=== PATIENT | female | born 1980 | race Caucasian/White ===

== ENCOUNTER 2024-02-17 09:48 | Emergency (ER) | payer BC, SELFPAY ==
[2024-02-17 09:54] VITALS: BP 118/75; PULSE 80; RESP 18; TEMP 37.4; O2SAT 100; BMI 23.3
--- NOTE | 2024-02-17 10:07 | CRLHL7_ITS ---
For Patients: As a result of the Century Cures Act, medical imaging exams and procedure reports are released immediately into your electronic medical record. You may view this report before your referring provider. If you have questions, please contact your health care provider. INDICATION: Vaginal bleeding. . Findings: An endovaginal pelvic ultrasound shows a uterus of normal size, contour, and echogenicity. Thickened endometrial stripe measuring up to 3.5 cm in thickness with no fluid collection in the endometrial canal. 1.4 cm possible corpus luteum cyst in the left ovary. The ovaries are otherwise unremarkable with the left ovary measuring 3.3 x 2.2 x 1.7 cm in the right ovary measuring 3.3 x 2.2 x 1.1 cm. Impression : 1. No intra or extra uterine identified. An ectopic can not be excluded based on this study. Recommend continued close interval sonographic and laboratory follow-up. Dictated by Dell Kirby MD @ 02/17/2024 12:09:56 PM (Electronically Signed)
--- NOTE | 2024-02-17 10:19 | ED.GENADULT ---
HPI - General Adult General Chief complaint: Vaginal Bleeding Stated complaint: possible miscarriage Time Seen by Provider: 02/17/24 09:58 Source: patient Mode of arrival: ambulatory Limitations: no limitations History of Present Illness HPI narrative: [age] year old female coming in today with vaginal bleeding. Patient states that she is a at unknown age of gestation. She states that she had her LMP on November 27 and that at the beginning of January she had an ultrasound done with her OBGYN who told her that the was not viable. She has been spotting on and off for about a week and then this morning approximately 2-1/2 hours ago she started ?gushing blood?. She is tearful, feels lightheaded. She does state that the bleeding has slowed down some. Related Data Home Medications ?Medication ?Instructions ?Recorded ?Confirmed No Known Home Medications 02/17/24 02/17/24 Allergies Allergy/AdvReac Type Severity Reaction Status Date / Time Penicillins Allergy Verified 02/17/24 09:54 Review of Systems Status of ROS: Reports: 10 or more systems reviewed and unremarkable except as noted in History and below PFSH PFS Social History Smoking Status: Never smoker Do you use any of these nicotine containing products: None Second hand tobacco smoke exposure: No How often do you have a drink containing alcohol: monthly or less How many standard drinks containing alcohol do you have on a typical day: 1 or 2 How often do you have six or more drinks on one occasion: Never AUDIT-C Alcohol total score: 1 Non-prescribed substance use: denies use service: No Exam Narrative: Exam Narrative: Well-nourished well-developed patient, tearful. Alert and oriented. Answers questions appropriately. Thoughts are goal oriented and rational. No tangential or magical thinking noted. Patient speaks in full sentences without needing to catch her breath. Does not appear pale or ill. HEENT: Normocephalic atraumatic. Pupils are equally round reactive to light. Extraocular muscles are intact. Conjunctivae are moist without any icterus noted. Moist mucous membranes. Posterior pharynx is normal. Neck is soft without any lymphadenopathy or thyromegaly. No masses are appreciated. Cardiovascular: Heart is regular rate and rhythm S1 and S2 are present without any murmurs. Lungs: Clear to auscultation bilaterally no wheezes rhonchi or rales are appreciated. Patient takes deep breaths without any discomfort. Abdomen: Soft and nontender nondistended with normal bowel sounds. Extremities: Bilateral lower extremities are without edema. Skin: Well perfused without any obvious rashes. Const: Vital Signs, click to edit/add: Vital Signs - 24 hr 02/17/24 09:54 02/17/24 10:31 02/17/24 11:49 Temperature 99.3 F 99.3 F Pulse Rate 82 Pulse Rate [Pulse Oximeter] 80 80 Respiratory Rate 18 14 18 Blood Pressure 109/67 Blood Pressure [Le ft Upper Arm] 118/75 118/75 Pulse Oximetry 100 97 Oxygen Delivery Me thod Room Air Course Course ED Course: IV is established influenza started. CBC and ABO Rh blood type is drawn. These are unremarkable, her blood type O positive. Ultrasound is ordered - this shows some retained products in the uterus and vascular endometrium. Did discuss these results with Dr. Koo - who recommended either waiting a few more days as long as the bleeding is not significant or doing a D&C. I discussed this with the patient would like to go home at this time he does not feel the need for D&C. Missed patient states that her bleeding has slowed down. She describes it as regular menses at this time. Vital Signs Vital signs: Initial Vital Signs Temperature 99.3 F 02/17/24 09:54 Temperature Source Temporal Artery Scan 02/17/24 09:54 Pulse Rate 80 02/17/24 09:54 Pulse Rhythm Regular 02/17/24 09:54 Respiratory Rate 18 02/17/24 09:54 Blood Pressure 118/75 02/17/24 09:54 Blood Pressure Mean 89 02/17/24 09:54 Blood Pressure Position Supine 02/17/24 09:54 Pulse Oximetry 100 02/17/24 09:54 Oxygen Delivery Method Room Air 02/17/24 09:54 Vital Signs Temperature 99.3 F 02/17/24 09:54 Pulse Rate 80 02/17/24 09:54 Respiratory Rate 18 02/17/24 09:54 Blood Pressure 118/75 02/17/24 09:54 Pulse Oximetry 100 02/17/24 09:54 Oxygen Delivery Method Room Air 02/17/24 09:54 Temperature 99.3 F 02/17/24 11:49 Pulse Rate 80 02/17/24 11:49 Respiratory Rate 18 02/17/24 11:49 Blood Pressure 118/75 02/17/24 11:49 Pulse Oximetry 97 02/17/24 10:31 Oxygen Delivery Method Room Air 02/17/24 09:54 Medications Administered Medications: Discontinued Medications Generic Name Dose Route Start Last Admin Trade Name Freq PRN Reason Stop Dose Admin Sodium Chloride 1,000 mls @ 1,000 mls/hr 02/17/24 10:15 02/17/24 11:25 0.9 % Sodium Chloride 1000 Ml IV 02/17/24 11:14 Infused .Q1H STEPHANIE Infusion Medical Decision Making MDM Narrative Medical decision making narrative: Spontaneous . Patient will be discharged home at this time. We discussed returning if she has increased bleeding where she is soaking more than 1 pad per hour, she becomes very lightheaded. Otherwise she will follow-up with her OBGYN early next week. Lab Data Lab results reviewed: Yes I reviewed the patient's lab results Labs: Lab Results 02/17/24 Range/Units 10:16 WBC 9.24 (4.50-11.00) K/uL RBC 3.93 L (4.00-5.20) m/uL Hgb 12.2 (12.0-16.0) gm/dL Hct 36.2 (33.0-51.0) % MCV 92 (80-100) fL MCH 31 (26-34) pg MCHC 34 (32-36) gm/dL RDW Coeff of Kasandra 12.2 (11.5-15.5) % Plt Count 205 (140-440) K/uL Neut % (Auto) 73.2 H (42.0-72.0) % Lymph % (Auto) 19.8 L (20-44) % [place] % (Auto) 5.6 (0.0-11.0) % Eos % (Auto) 0.8 (0.0-7.0) % Baso % (Auto) 0.5 (0.0-3.0) % Neut # (Auto) 6.80 (1.7-7.0) K/uL Lymph # (Auto) 1.80 (0.90-2.90) K/uL [place] # (Auto) 0.50 (0.00-0.90) K/UL Eos # (Auto) 0.07 (0.00-0.50) K/uL Baso # (Auto) 0.05 (0.00-0.30) K/uL Abs Immat Gran (auto) 0.01 (0.00-0.30) K/uL Imm/Tot Granulo (auto) 0.1 % Blood Type O Positive Imaging Data US - abdomen: Attestation: I have reviewed the pertinent imaging results. Radiologist's impression: Procedure(s): US OB transvaginal Accession Number(s): [id number] cc: Tracy Ruvalcaba M.D.; Provider,Not a Local~ For Patients: As a result of the Cures Act, medical imaging exams and procedure reports are released immediately into your electronic medical record. You may view this report before your referring provider. If you have questions, please contact your health care provider. INDICATION: Vaginal bleeding. . Findings: An endovaginal pelvic ultrasound shows a uterus of normal size, contour, and echogenicity. Thickened endometrial stripe measuring up to 3.5 cm in thickness with no fluid collection in the endometrial canal. 1.4 cm possible corpus luteum cyst in the left ovary. The ovaries are otherwise unremarkable with the left ovary measuring 3.3 x 2.2 x 1.7 cm in the right ovary measuring 3.3 x 2.2 x 1.1 cm. Impression : 1. No intra or extra uterine identified. An ectopic can not be excluded based on this study. Discharge Plan Discharge Clinical Impression: Spontaneous Patient Disposition: Home, Self-Care Condition: Stable Additional Instructions: Expect bleeding for several more days. Return to the ER if you are soaking more than 1 pad per hour. It is likely that you will have another episode where you have significant cramping and increased bleeding, this should not last for longer than an hour. Recommend you follow-up with your OBGYN early next week. Prescriptions: No Action No Known Home Medications Follow Up/Referrals: Provider,Not a Local [Primary Care Provider] - Stand Alone Forms: [employer] Info Instructions
[2024-02-17 10:24] LABS: Basophils Absolute Auto 0.05 K/uL (0.00-0.30); Basophils Percent Auto 0.5 % (0.0-3.0); Eosinophils Absolute Auto 0.07 K/uL (0.00-0.50); Eosinophils Percent Auto 0.8 % (0.0-7.0); Hematocrit 36.2 % (33.0-51.0); Hemoglobin* 12.2 gm/dL (12.0-16.0); Immature Granulocytes Abs Auto 0.01 K/uL (0.00-0.30); Immature Granulocytes Pct Auto 0.1 %; Lymphocytes Percent Auto 19.8 % (20-44); Mean Corpuscular HGB Conc 34 gm/dL (32-36); Mean Corpuscular Hemoglobin 31 pg (26-34); Mean Corpuscular Volume 92 fL (80-100); Monocytes Percent Auto 5.6 % (0.0-11.0); Neutrophils Percent Auto 73.2 % (42.0-72.0); Platelet Count* 205 K/uL (140-440); RDW Coefficient of Variation % 12.2 % (11.5-15.5); Red Blood Count 3.93 m/uL (4.00-5.20); White Blood Count* 9.24 K/uL (4.50-11.00)
[2024-02-17] MEDS: 0.9 % SODIUM CHLORIDE 1000 ml 1,000 ML IV (10:25)
[2024-02-17 10:31] VITALS: BP 109/67; PULSE 82; RESP 14; O2SAT 97
[2024-02-17 10:35] LABS: Slide Review Reflex No
[2024-02-17 11:49] VITALS: BP 118/75; PULSE 80; RESP 18; TEMP 37.4
== END 2024-02-17 11:50 | disposition home or self-care (01) ==
PROVIDERS: Emergency Provider Family Medicine
DX: O03.9 Complete or unspecified spontaneous abortion without complication (principal)
CPT/HCPCS: 36415; 76817; 85025; 86900; 86901; 99284; J7030